=== PATIENT | male | born 1955 | race Caucasian/White ===

== ENCOUNTER → 2017-04-16 | Outpatient (CLI) | payer OTHER | DX: M54.2 Cervicalgia (principal) ==

== ENCOUNTER → 2017-10-24 | Outpatient (CLI) | payer OTHER ==
[2017-10-24 15:52] LABS: BASOPHILS % (AUTO) 0 % (0-10); EOSINOPHILS # (AUTO) 0.1 10^3/uL (0.0-0.3); EOSINOPHILS % (AUTO) 1 % (0-10); HEMATOCRIT 43 % (40-54); HEMOGLOBIN 14.7 G/DL (13.3-17.7); LYMPHOCYTES # (AUTO) 1.5 X 10^3 (1.0-4.0); LYMPHOCYTES % (AUTO) 21 % (12-44); MEAN CORPUSCULAR HEMOGLOBIN 31 PG (25-34); MEAN CORPUSCULAR HGB CONC 34 G/DL (32-36); MEAN CORPUSCULAR VOLUME 91 FL (80-99); MONOCYTES # (AUTO) 1.1 X 10^3 (0.0-1.0); MONOCYTES % (AUTO) 16 % (0-12); NEUTROPHILS # (AUTO) 4.2 X 10^3 (1.8-7.8); NEUTROPHILS % (AUTO) 61 % (42-75); PLATELET COUNT 157 10^3/uL (130-400); RED BLOOD COUNT 4.75 10^6/uL (4.35-5.85); RED CELL DISTRIBUTION WIDTH 14.8 % (10.0-14.5); WHITE BLOOD COUNT 6.9 10^3/uL (4.3-11.0)
[2017-10-24 16:10] LABS: ALANINE AMINOTRANSFERASE 19 U/L (0-55); ALBUMIN 4.4 GM/DL (3.2-4.5); ALKALINE PHOSPHATASE 59 U/L (40-136); BILIRUBIN,TOTAL 0.6 MG/DL (0.1-1.0); BUN/CREATININE RATIO 18; CALCIUM 9.2 MG/DL (8.5-10.1); CARBON DIOXIDE 24 MMOL/L (21-32); CHLORIDE 100 MMOL/L (98-107); CREATININE SERUM 0.82 MG/DL (0.60-1.30); GFR ESTIMATED > 60; GLUCOSE 122 MG/DL (70-105); POTASSIUM 4.3 MMOL/L (3.6-5.0); SODIUM 136 MMOL/L (135-145); TOTAL PROTEIN 7.5 GM/DL (6.4-8.2)
== END ==
LOC: LAB 15:33
PROVIDERS: ATTEND Nurse Practitioner Family
DX: J10.00 Influenza due to other identified influenza virus with unspecified type of pneumonia (principal); R05 Cough
CPT/HCPCS: 36415; 80053; 85025; 86738

== ENCOUNTER → 2019-09-27 | Outpatient (CLI) | payer MEDICARE, OTHER ==
[~2019-09-27] MED LIST: ASPI-983 PO; ATOR10TA PO; ATOR20TA49 PO; CHOL400T3 PO; LISI10TA2 PO; METF-399 PO; MULT-1104 PO; PIOG30TA38 PO; TR1C15 TP
--- NOTE | 2019-09-27 10:14 | Diagnostic Imaging Report ---
INDICATION: History of tobacco use with a 50+ pack year history. Continued tobacco use. Productive cough. TECHNIQUE: Noncontrast, low-dose CT imaging performed according to lung cancer screening protocol. COMPARISON: None. FINDINGS: HEART/MEDIASTINUM: Heart size normal. There is prominent, scattered coronary artery calcification. Thoracic aortic contour does demonstrate mild enlargement of the ascending aorta just under 4 cm in maximum size. There are prominent scattered mediastinal lymph nodes. No definitive pathologically enlarged lymphadenopathy. LUNGS/MEASURED PULMONARY NODULES: Emphysematous changes throughout the lung parenchyma. Slight areas of bronchiectasis are present. No infiltrate. There are few scattered tiny calcified granulomas. There is a small, noncalcified nodule in the anterior aspect of the left upper lobe, 2 mm in size (image 98 series 2). OTHER: Mildly advanced degenerative changes of the thoracic spine with bridging osteophytes present. IMPRESSION: 1. A few scattered small calcified granulomas and nodules present on mild emphysematous lung disease. 2. Scattered coronary artery calcification. LUNG-RADS CATEGORY: 2 A-S LUNG SCREENING MANAGEMENT/RECOMMENDATIONS: Continued annual screening with low dose CT in 12 months. Notes: Lung rads category 1 or 2 does not mean that an individual does not have lung cancer or other active disease process, but rather nothing is identified to meet criteria for current lung pathology. Therefore, continued annual lung cancer screening should be performed. Please note that this is a low dose CT examination, intended for lung cancer screening of high risk patients. As a technical result, the examination is limited in diagnostic quality compared to a conventional CT examination of the chest. Dictated by: Dictated on workstation # [id number]
== END ==
LOC: RAD 09:19
PROVIDERS: ATTEND Family Medicine
DX: I25.10 Atherosclerotic heart disease of native coronary artery without angina pectoris (principal); J43.9 Emphysema, unspecified; F17.210 Nicotine dependence, cigarettes, uncomplicated

== ENCOUNTER → 2019-10-13 | Outpatient (CLI) | payer MEDICARE | LOC: CARD 08:16 | PROVIDERS: ATTEND Family Medicine | DX: I25.10 Atherosclerotic heart disease of native coronary artery without angina pectoris (principal); R01.1 Cardiac murmur, unspecified | CPT/HCPCS: 93306 ==

== ENCOUNTER → 2019-11-09 | Outpatient (CLI) | payer MEDICARE, OTHER ==
[~2019-11-09] VITALS: Ht 180 cm; Wt 101.0 kg
[~2019-11-09] MED LIST changes: -ASPI-983 PO; -ATOR10TA PO; -ATOR20TA49 PO; +CATHETER FLUSH 10 ML SYR IV PRN; -CHOL400T3 PO; -LISI10TA2 PO; -METF-399 PO; -MULT-1104 PO; -PIOG30TA38 PO; -TR1C15 TP
[2019-11-09 09:01] VITALS: BP 156/81
--- NOTE | 2019-11-09 15:23 | STRESS TEST ---
DATE OF SERVICE: 11/09/2019 LEXISCAN MYOVIEW STRESS TEST REFERRING PHYSICIAN: Dr. Rogers. Baseline heart rate is 92. Baseline blood pressure 142/75. Baseline EKG is sinus rhythm with no ischemic changes. In summary, the patient was injected with 10.6 mCi of technetium-99 Myoview and the resting images were obtained. Then, the patient started exercising with a baseline heart rate, blood pressure and EKG mentioned above, was able to exercise for 4 minutes on standard Jose protocol. With peak exercise level, EKG was showing [address] depression in lead II, [address] depression in lead III and aVF, [address] depression in V4, V5, V6. Peak blood pressure was 179/78. During recovery, heart rate and blood pressure returned to baseline, EKG returned to baseline, the patient was injected with 31.8 mCi of technetium-99 with a peak stress level. The resting and stress images were reviewed and compared in the short axis, horizontal long axis, and vertical long axis views. Review of the images showed reversible ischemia involving the whole anterior wall, anterior septum, anterolateral wall and fixed defect at the apex, transient ischemic dilatation with TID value 1.2. On the gated images, the left ventricle is prominent with diffuse left ventricular hypokinesia, dyskinesia of the apex. Calculated ejection fraction is 39%. CONCLUSION: 1. Fair exercise tolerance, a total of 4 minutes on standard Jose protocol, total of 5.8 METS achieving 96% of maximum expected heart rate. 2. Abnormal stress test on EKG suggestive of ischemia. 3. Fixed defect at the apex reversible ischemia involving the whole anterior wall, anterior septum and anterolateral wall. 4. Prominent left ventricle, diffuse hypokinesia, dyskinesia of the apex, hypokinesia at the anterior wall. Calculated ejection fraction is 39%. Job ID: [id number] DocumentID: [id number] Dictated Date: 11/09/2019 13:08:36 Client Solutions Director Date: 11/09/2019 15:21:34 Dictated By: DENNISE EARLY MD
== END ==
LOC: CARD 08:01
PROVIDERS: ATTEND Internal Medicine Cardiovascular Disease
DX: I34.0 Nonrheumatic mitral (valve) insufficiency (principal); I25.10 Atherosclerotic heart disease of native coronary artery without angina pectoris; E11.9 Type 2 diabetes mellitus without complications; G47.33 Obstructive sleep apnea (adult) (pediatric); I25.89 Other forms of chronic ischemic heart disease
CPT/HCPCS: 78452; 93017

== ENCOUNTER 2019-11-16 06:38 | Day surgery (SDC) | payer MEDICARE, OTHER ==
[2019-11-16] VITALS (11 sets, daily range): BP systolic 99–139; BP diastolic 62–86
[~2019-11-16] VITALS: Ht 180 cm; Wt 102.0 kg
[2019-11-16] MEDS ORDERED: HEParin (CATH LAB) 2,000 ML IV ONE (06:44)
[2019-11-16] MEDS ORDERED: LIDOCAINE 1% INJ 20 ML 20 ML VIAL ONE (06:44)
[2019-11-16] MEDS ORDERED: NS IV 1000 ML 1,000 ML ONE (06:44)
[2019-11-16] MEDS ORDERED: NS IV 1000 ML 1,000 ML IV SCH ×2 (06:45→08:44)
[2019-11-16 07:08] LABS: HEMOGLOBIN 13.1 G/DL (13.3-17.7); MEAN PLATELET VOLUME 11.3 FL (7.4-10.4); RED CELL DISTRIBUTION WIDTH 15.2 % (10.0-14.5); WHITE BLOOD COUNT 9.6 10^3/uL (4.3-11.0)
[2019-11-16 07:08] LABS: BILIRUBIN,URINE NEGATIVE (NEGATIVE); CLARITY,URINE CLEAR; COLOR,URINE YELLOW; GLUCOSE, URINE (UA) NEGATIVE (NEGATIVE); KETONES,URINE NEGATIVE (NEGATIVE); LEUKOCYTE ESTERASE ,URINE NEGATIVE (NEGATIVE); NITRITE,URINE NEGATIVE (NEGATIVE); PROTEIN,URINE NEGATIVE (NEGATIVE)
[2019-11-16] MEDS ORDERED: HEParin 1000 UNIT/ML (10ML VIAL) FOR BOLUS ONE (07:14)
[2019-11-16] MEDS ORDERED: MIDAZOLAM 5 MG/5 ML (VERSED) VIAL ONE (07:14)
[2019-11-16] MEDS ORDERED: fentaNYL INJECTION 100 MCG/2 ML AMP ONE (07:14)
[2019-11-16] MEDS ORDERED: VERAPAMIL 5 MG/2 ML (CALAN) VIAL IV ONE (07:14)
[2019-11-16] MEDS ORDERED: NITRO DRIP 25000 MCG/D5W 250 ML IV ONE (07:15)
[2019-11-16 07:19] LABS: BACTERIA,URINE NEGATIVE /HPF; SQUAMOUS EPITHELIAL CELL,UR RARE /HPF
[2019-11-16 07:24] LABS: PROTHROMBIN TIME PATIENT 13.3 SEC (12.2-14.7)
[2019-11-16 07:28] LABS: ALANINE AMINOTRANSFERASE 20 U/L (0-55); ALBUMIN 4.2 GM/DL (3.2-4.5); ALKALINE PHOSPHATASE 60 U/L (40-136); BILIRUBIN,TOTAL 0.4 MG/DL (0.1-1.0); BUN/CREATININE RATIO 20; CARBON DIOXIDE 23 MMOL/L (21-32); CHLORIDE 105 MMOL/L (98-107); CHOLESTEROL 176 MG/DL (< 200); CREATININE SERUM 0.83 MG/DL (0.60-1.30); GFR ESTIMATED > 60; GLUCOSE 148 MG/DL (70-105); HDL CHOLESTEROL 42 MG/DL (40-60); POTASSIUM 3.9 MMOL/L (3.6-5.0); SODIUM 138 MMOL/L (135-145); TOTAL PROTEIN 6.6 GM/DL (6.4-8.2); TRIGLYCERIDES 156 MG/DL (<150); VLDL CHOLESTEROL 31 MG/DL (5-40)
[2019-11-16] MEDS ORDERED: MULT-1104 PO (07:33)
[2019-11-16] MEDS ORDERED: ASPI-983 PO (07:33)
[2019-11-16] MEDS ORDERED: PIOG30TA38 PO (07:33)
[2019-11-16] MEDS ORDERED: ATOR10TA PO (07:33)
[2019-11-16] MEDS ORDERED: LISI10TA2 PO (07:33)
[2019-11-16] MEDS ORDERED: TR1C15 TP (07:33)
[2019-11-16] MEDS ORDERED: METF-399 PO (07:33)
--- NOTE | 2019-11-16 07:44 | Diagnostic Imaging Report ---
INDICATION: Abnormal stress, dyspnea, hypertension. TECHNIQUE: Single view chest 7:34 AM. CORRELATION STUDY: 06/27/2016 FINDINGS: Relatively stable support cardiac enlargement. Vasculature within normal limits. The lungs are clear with no consolidating infiltrate. There is no significant effusion or pneumothorax. Cervical spine fusion hardware. IMPRESSION: 1. Stable cardiac enlargement without failure. Dictated by: Dictated on workstation # [id number]
[2019-11-16] MEDS ORDERED: CHOL400T3 PO (07:51)
--- NOTE | 2019-11-16 08:01 | Cardiac Procedure Note-CS/ASA ---
Pre-Procedure Note Pre-Op Procedure Note H&P Reviewed The H&P was reviewed, patient examined and no changes noted. Date H&P Reviewed: Nov 16, 2019 Time H&P Reviewed: 08:01 Conscious Sedation Pre-Proced Time 08:01 ASA Score 3 For ASA 3 and 4: Consider anesthesia and medical clearance. Also, for patients with a history of failed moderate sedation consider anesthesia. Airway Lungs Heart ASA score ASA 1: a normal healthy patient ASA 2: a patient with a mild systemic disease (mid diabetes, controlled hypertension, obesity x ASA 3: a patient with a severe systemic disease that limits activity (angina, COPD, prior Myocardial infarction) ASA 4: a patient with an incapacitating disease that is a constant threat to life (CHF, renal failure) ASA 5: a moribund patient not expected to survive 24 hrs. (ruptured aneurysm) ASA 6: a declared brain- patient whose organs are being harvested. For emergent operations, add the letter E after the classification Mallampati Classification Grade 3 Sedation Plan Analgesia, Amnesia, Plan communicated to team members, Discussed options with patient/fam, Discussed risks with patient/fam The patient is an appropriate candidate to undergo the planned procedure, sedation, and anesthesia. The patient immediately re-assessed prior to indication. DENNISE EARLY MD Nov 16, 2019 08:01
--- NOTE | 2019-11-16 08:16 | NUR ---
SPOKE WITH THE PT (HE HAD HIS MED BOTTLES) WELL CALLING [facility] TO COMPLETE THE MED REC. THE PT WAS ABLE TO TELL ME ALL HIS MEDS AND WHEN HE TAKES EACH ONE. THE FOLLOWING ARE FILL DATES ACCORDING TO [facility]: 09-23-2019 ATORVASTATIN #90/90DS 09-23-2019 PIOGLITAZONE #90/90DS 10-07-2019 TRIAMCINOLONE #30GRAMS (RECEIVED TWO 15 GM TUBES) 10-14-2019 METFORMIN #60/30DS 10-17-2019 LISINOPRIL #90/90DS OTC MEDS: MTV ASPIRIN VIT D
[2019-11-16] MEDS ORDERED: ATOR20TA49 PO (08:48)
--- NOTE | 2019-11-16 08:54 | Cardiac Cath Report ---
Cardiac Cath Report Physician (s)/Avionics Systems Repairer (s) Physician DENNISE EARLY MD Pre-Procedure Diagnosis Pre-Procedure Diagnosis: coronary artery disease Post-Procedure Note Procedure Start Date: Nov 16, 2019 Name of Procedure: left heart catheterization Findings/Procedure Note PROCEDURE NOTE: 63-year-old gentleman with coronary artery disease, hypertension hyperlipidemia, had an abnormal stress test, scheduled for cardiac catheterization possible PTCA. After explaining the procedure to the patient, all pros and cons were explained, all questions were answered. The patient signed the consent and then he was placed on the cardiac catheterization laboratory. Groin was prepped SL fashion local anesthesia was used. Sheath placed in the Right radial artery, Cashion catheter used advanced to the left ventricular cavity, pressure was measured, advanced to the left coronary system and left coronary angina gram was done, exchanged to JR catheter, advanced to the right coronary artery and angiogram was done, angiogram to the aortic arch was done At the end of the procedure the sheath was removed. vascular band was used FINDINGS: Hemodynamics LV 111/19, end-diastolic pressure of 9 Aorta 112/69 mean of 86 ANATOMY: Left Main is free of obstructive disease Left Anterior Descending is totally occluded in the occipital midportion, reconstructed by collaterals Left Circumflex has diffuse ectasia, large dominant artery, 50-60 percent stenosis at the midportion Right Coronory Artery is nondominant artery, moderate in size with no obstructive disease LV Gram was not done, pressure was measured Aorta evaluation done with arch angiogram showing normal arch, no dissection, no aneurysm, normal innominate artery, left subclavian, left carotid arteries CONCLUSION: 1. Total occlusion of the LAD reconstructed by collaterals 2. Diffuse ectasia in the circumflex artery with moderate disease at the midportion 3. Normal aortic arch and great vessels of the neck DISCUSSION AND RECOMMENDATION: Evaluate viability of the anterior wall then consideration for bypass surgery versus high risk intervention Anesthesia Type: Conscious Sedation Estimated blood loss (mL): 15 ml Contrast Amount: 76 ml Total Radiation Dose: 615 mGy Post-Procedure Diagnosis Post-operative diagnosis: Coronary artery disease Congestive heart failure Hypertension Hyperlipidemia DENNISE EARLY MD Nov 16, 2019 08:54
== END 2019-11-16 12:05 | disposition home or self-care (01) ==
LOC: CATH 06:38 → SDC 09:06 → CATH 12:05
PROVIDERS: ATTEND Internal Medicine Cardiovascular Disease
DX: I25.10 Atherosclerotic heart disease of native coronary artery without angina pectoris (principal); I34.0 Nonrheumatic mitral (valve) insufficiency; I11.0 Hypertensive heart disease with heart failure; I50.9 Heart failure, unspecified; I65.29 Occlusion and stenosis of unspecified carotid artery; G47.33 Obstructive sleep apnea (adult) (pediatric); E78.5 Hyperlipidemia, unspecified; E11.9 Type 2 diabetes mellitus without complications; J43.9 Emphysema, unspecified; F17.210 Nicotine dependence, cigarettes, uncomplicated; Z79.84 Long term (current) use of oral hypoglycemic drugs; Z79.82 Long term (current) use of aspirin; Z79.899 Other long term (current) drug therapy; Z80.9 Family history of malignant neoplasm, unspecified; Z83.3 Family history of diabetes mellitus; Z82.49 Family history of ischemic heart disease and other diseases of the circulatory system
CPT/HCPCS: 36221; 36415; 71045; 80053; 80061; 81000; 85027; 85610; 85730; 87081; 93458

== ENCOUNTER → 2019-11-29 | Outpatient (CLI) | payer MEDICARE ==
[~2019-11-29] MED LIST changes: +ASPI-983 PO; +ATOR10TA PO; +ATOR20TA49 PO; +CHOL400T3 PO; +LISI10TA2 PO; +METF-399 PO; +MULT-1104 PO; +PIOG30TA38 PO; +TR1C15 TP
--- NOTE | 2019-11-30 17:50 | STRESS TEST ---
DATE OF SERVICE: 11/29/2019 RESTING AND REDISTRIBUTION STUDY REFERRING PHYSICIAN: Karyna Rogers DO In summary, the patient was injected with 3.07 mCi of thallium-201 and the resting images were obtained. Then, the patient returned 24 hours later had additional 1.0 mCi of thallium-201 injected and the redistribution images were acquired, resting and redistribution images were acquired and reviewed in the short axis, horizontal long axis, and vertical long axis views. Review of the images showed decreased uptake involving the mid to apical anterior wall, true apex, which appeared to have mild reversibility at the apex. Overall, there is good radiotracer uptake. CONCLUSION: Total infarction of the apex, anteroapical and inferoapical segment with a mild viability in the apex and inferoapical area, otherwise good radiotracer uptake. Job ID: [id number] DocumentID: [id number] Dictated Date: 11/30/2019 15:28:00 Purification Director Date: 11/30/2019 17:49:46 Dictated By: DENNISE EARLY MD
== END ==
LOC: CARD 08:10
PROVIDERS: ATTEND Internal Medicine Cardiovascular Disease
DX: I25.10 Atherosclerotic heart disease of native coronary artery without angina pectoris (principal); R94.39 Abnormal result of other cardiovascular function study
CPT/HCPCS: 78452; 93017

== ENCOUNTER → 2021-02-27 | Outpatient (CLI) | payer MEDICARE ==
[~2021-02-27] MED LIST changes: +ASPI-1238 PO; -ASPI-983 PO; +HOLD METFORMIN - RECEIVED CONTRAST 20 ML VIAL IV SCH; +IOHEXOL 350 MG/ML 100 ML (OMNIPAQUE 350) VIAL IV ONE; -LISI10TA2 PO; +LISI10TA25 PO; +NS 100 ML (IVPB) BAG IV ONE
[2021-02-27 07:41] LABS: BUN/CREATININE RATIO 18; GFR ESTIMATED > 60
--- NOTE | 2021-02-27 09:32 | Diagnostic Imaging Report ---
PROCEDURE: CT neck soft tissue with contrast. TECHNIQUE: Multiple contiguous axial images were obtained through the neck after the administration of contrast. Auto Exposure Controls were utilized during the CT exam to meet ALARA standards for radiation dose reduction. INDICATION: Swollen gland under right jaw. FINDINGS: The submandibular glands are enlarged bilaterally. The right is slightly larger than the left. The right lobe measures 4.2 x 2.7 cm. The parotid glands are normal. There is good enhancement of the cervical vessels which appear normal. No evidence of cervical chain adenopathy. The thyroid gland is normal. The tissue planes throughout the neck appear normal with normal-appearing strap muscles. The parapharyngeal tissue planes are normal. The lateral view does show anterior cervical fusion of C5-C6. IMPRESSION: There is symmetrical enlargement of the submandibular glands with the right being slightly larger. There are no discrete masses. No ductal stones or obstruction noted. Dictated by: Dictated on workstation # [id number]
== END ==
LOC: RAD 07:45
PROVIDERS: ATTEND Family Medicine
DX: R59.0 Localized enlarged lymph nodes (principal); K11.1 Hypertrophy of salivary gland
CPT/HCPCS: 36415; 70491; 82565; 84520

== ENCOUNTER → 2021-05-28 | Outpatient (CLI) | payer MEDICARE ==
[~2021-05-28] MED LIST changes: -CATHETER FLUSH 10 ML SYR IV PRN; -HOLD METFORMIN - RECEIVED CONTRAST 20 ML VIAL IV SCH; -IOHEXOL 350 MG/ML 100 ML (OMNIPAQUE 350) VIAL IV ONE; -NS 100 ML (IVPB) BAG IV ONE
== END ==
LOC: CARD 14:15
PROVIDERS: ATTEND Family Medicine
DX: R42 Dizziness and giddiness (principal); R00.2 Palpitations
CPT/HCPCS: 93005